=== PATIENT | female | born 1980 | race African-American/Black ===

== ENCOUNTER 2020-08-03 11:07 | Outpatient (REF) | payer MEDICAID, SELFPAY ==
[2020-08-03 12:04] LABS: COVID-19 Test Negative (Negative)
== END 2020-08-03 11:08 | disposition home or self-care (01) ==
LOC: HO.LAB 11:07
PROVIDERS: Visit Provider Internal Medicine
DX: Z20.822 Contact with and (suspected) exposure to COVID-19 (principal)
CPT/HCPCS: 36415; 87635; C9803

== ENCOUNTER 2020-10-31 20:58 | Emergency (ER) | payer MEDICAID, SELFPAY ==
[2020-10-31 21:16] VITALS: BP 150/84; PULSE 90; RESP 18; TEMP 37.1; O2SAT 99; BMI 43.5
--- NOTE | 2020-10-31 22:10 | ED.NECK ---
HPI - Neck Pain/Injury General Chief Complaint: Neck Pain/Injury Stated Complaint: neck pain Time Seen by Provider: 10/31/20 22:03 Source: patient Mode of arrival: ambulatory Limitations: no limitations History of Present Illness HPI Narrative: 40 yo female with no significant medical history presenting with acute onset of left sided neck pain that started when she was in the shower last night. She denies trauma or injury. Pain is located on the left side of her neck and worse with palpation and movement of her head. Her neck ROM has been limited due to the pain. No fever, chills, N/V, headache. No radiation of the pain. She has not taken any medications for the pain as of yet. MD complaint: neck pain Onset (ago): day(s) (1) Place: home Radiation: left lateral Severity: moderate Severity scale (1-10): 6 Quality: aching and spasming Duration: constant Relieving factors: heat therapy Exacerbating factors: movement of neck Context: unknown Associated symptoms: none Treatments prior to arrival: none Related Data Previous Rx's Medication Instructions Recorded cyclobenzaprine 10 mg PO TID PRN #10 tab 10/31/20 ibuprofen 800 mg PO Q8H PRN #14 tab 10/31/20 Allergies Allergy/AdvReac Type Severity Reaction Status Date / Time No Known Allergies Allergy Verified 10/31/20 21:15 Review of Systems Review of Systems: Constitutional: No Fever, No Chills ENT/Mouth: No sore throat, No Rhinorrhea, No Swallowing Difficulty Eyes: No Eye Pain, No Swelling, No Redness Cardiovascular: No Chest Pain, No SOB Respiratory: No Cough, No Sputum Gastrointestinal: No Nausea, No Vomiting Musculoskeletal: No joint pain, + Myalgias Skin: No Skin Lesions, No rash Neuro: No Weakness, No Numbness, No Dizziness, No Headache PMFSH Past Medical History Attestation statement: The following information was validated with the patient. Medical History Depression HTN (hypertension) Social History Social History Advance Directives: No Advance Directives Information Provided: Yes Patient : No Physical Exam Vital Signs: Vital Signs: Last Vital Signs Temp 98.7 F 10/31/20 21:16 Pulse 90 10/31/20 21:16 Resp 18 10/31/20 21:16 BP 150/84 H 10/31/20 21:16 Pulse Ox 99 10/31/20 21:16 Body Mass Index 43.5 Const: General: cooperative and healthy appearing Nutritional Appearance: average body habitus and well nourished Orientation/consciousness: patient oriented x3 HENMT: Head: Yes normal to inspection, Yes normocephalic and Yes atraumatic Ears: hearing grossly normal bilaterally General nose exam: Normal external nose present Face and sinus: Yes normal facial exam Mouth: Normal oral and palatal mucosa present Throat: Yes posterior oropharynx normal, Yes tonsils normal and Yes uvula midline Eyes: General: appearance normal, both eyes and all related structures Neck: Neck: Yes normal visual inspection, Yes no lymphadenopathy, Yes trachea midline, Yes tender and Yes torticollis (left side) Chest: Chest palpation & inspection: normal inspection of the chest Resp: Effort & Inspection: normal respiratory effort and able to speak in complete sentences Neuro: General: patient oriented x3 Extrem: General: Yes normal to inspection Psych: Appearance: grossly normal Mental Status: mental status grossly normal Course Course Course Narrative: 40 y/o female presenting with nontraumtic left sided neck pain for the last 24 hours. Exam is consistent with muscle spasm in the lateral aspect of the left neck. Neuro exam is intact without and nuchal rigidity or headaches. Will treat with muscle relaxer and NSAID and reassess. Reevaluation(s) Reevaluation #1: Significant improvement after meds. Stable for d/c home with muscle relaxer, NSAID, rest and heat. Encouraged to f/u with PCP. Discharge Plan Discharge Clinical Impression: Torticollis Patient Disposition: Home, Self-Care Instructions: Spasmodic Torticollis (ED) Additional Instructions: Rest. Use heat to your neck for 20 minutes at a time, several times throughout the day. Gently work on range of motion and moving your head side to side, as tolerated. Take the prescribed medications as needed. Follow up with your doctor for further management. Prescriptions: New cyclobenzaprine 10 mg tablet 10 mg PO TID PRN (Reason: muscle spasm) Qty: 10 RF: 0 ibuprofen 800 mg tablet 800 mg PO Q8H PRN (Reason: pain) Qty: 14 RF: 0 Discharge Date/Time: 10/31/20 23:04
[2020-10-31] MEDS: Ketorolac Tromethamine 30 MG/ML VIAL IM (22:30)
[2020-10-31] MEDS: diazePAM 5 MG TABLET PO (22:30)
== END 2020-10-31 23:04 | disposition home or self-care (01) ==
PROVIDERS: Emergency Provider Emergency Medicine
DX: M43.6 Torticollis (principal)
CPT/HCPCS: 96372; 99284; J1885

== ENCOUNTER 2021-02-23 10:19 | Outpatient (REF) | payer MEDICAID, SELFPAY | END 2021-02-23 10:20 | disposition home or self-care (01) | LOC: HO.LAB 10:19 | PROVIDERS: PCP Internal Medicine; Visit Provider Internal Medicine | DX: Z20.822 Contact with and (suspected) exposure to COVID-19 (principal) | CPT/HCPCS: C9803; U0003; U0005 ==

== ENCOUNTER 2022-12-20 10:10 | Outpatient (REF) | payer MEDICAID, SELFPAY ==
[2022-12-20 11:22] LABS: MANUAL DIFF FLAG NO
[2022-12-20 11:33] LABS: Basophils Percent Auto 0.3 % (0-2); Eosinophils Absolute Auto 0.2 X10*3/uL (0.0-0.4); Hematocrit 37.5 % (37.0-47.0); Imm Gran Abs Auto 0.03 X10*3/uL (0.00-0.03); Imm Gran Pct Auto 0.3 % (0.0-0.4); Lymphocytes Absolute Auto 2.1 X10*3/uL (1.2-4.9); Lymphocytes Percent Auto 23.3 % (20-40); Mean Corpuscular Hemoglobin 26.2 pg (27.0-33.0); Mean Corpuscular Volume 81.9 fL (80.0-98.0); Mean Platelet Volume 11.1 fL (9.4-12.3); Monocytes Absolute Auto 0.8 X10*3/uL (0.1-1.2); Monocytes Percent Auto 8.4 % (2-11); Neutrophils Absolute Auto 5.8 x10*3/uL (2.0-8.3); Neutrophils Percent Auto 65.7 % (45-73); Platelet Count 305 X10*3/uL (160-400); Red Blood Count 4.58 X10*6/uL (4.20-5.50); Red Cell Distribution Width 13.6 % (11.0-16.0); White Blood Count 8.9 X10*3/uL (4.8-10.8)
[2022-12-20 12:36] LABS: Estimated Average Glucose 111 mg/dL; Hemoglobin A1c % 5.5 % (<6.0)
[2022-12-20 12:51] LABS: Alanine Aminotransferase 17 U/L (0-31); Albumin Level 4.1 g/dL (3.5-5.0); Alkaline Phosphatase 58 U/L (39-117); Anion Gap 13 (12-20); Aspartate Amino Transferase 17 U/L (5-31); Bilirubin Direct 0.1 mg/dL (0.0-0.5); Bilirubin Total 0.6 mg/dL (0.0-1.0); Blood Urea Nitrogen 11 mg/dL (9-16); Calcium 9.3 mg/dL (8.4-10.2); Carbon Dioxide 22 mmol/L (22-29); Chloride 108 mmol/L (96-108); Cholesterol 208 mg/dL (<200); Estimated Glomerular Filt Rate > 60; Glucose Random 90 mg/dL (60-115); HDL Cholesterol 45 mg/dL (>40); LDL Cholesterol Calculated 142 mg/dL (<100); Sodium 139 mmol/L (135-145); Total Protein 7.2 g/dL (6.5-8.0); Triglycerides 107 mg/dL (<150)
[2022-12-20 12:54] LABS: TSH reflex Free T4 2.72 uIU/mL (0.32-4.0)
== END 2022-12-20 10:11 | disposition home or self-care (01) ==
LOC: HO.HHCL 10:10
PROVIDERS: Visit Provider Internal Medicine
DX: F32.A Depression, unspecified (principal)
CPT/HCPCS: 36415; 80048; 80061; 80076; 83036; 84443; 85025

== ENCOUNTER 2023-09-09 10:29 | Outpatient (REF) | payer MEDICAID, SELFPAY ==
[2023-09-09 11:37] LABS: MANUAL DIFF FLAG NO
[2023-09-09 11:44] LABS: Basophils Percent Auto 0.6 % (0-2); Eosinophils Absolute Auto 0.1 X10*3/uL (0.0-0.4); Eosinophils Percent Auto 1.2 % (0-4); Hematocrit 35.7 % (37.0-47.0); Hemoglobin 11.5 g/dl (12.0-16.0); Imm Gran Abs Auto 0.03 X10*3/uL (0.00-0.03); Imm Gran Pct Auto 0.4 % (0.0-0.4); Lymphocytes Absolute Auto 1.7 X10*3/uL (1.2-4.9); Mean Corpuscular HGB Conc 32.2 g/dl (31.0-35.0); Mean Corpuscular Hemoglobin 26.4 pg (27.0-33.0); Mean Corpuscular Volume 81.9 fL (80.0-98.0); Mean Platelet Volume 10.8 fL (9.4-12.3); Monocytes Absolute Auto 0.7 X10*3/uL (0.1-1.2); Neutrophils Absolute Auto 4.8 x10*3/uL (2.0-8.3); Neutrophils Percent Auto 65.8 % (45-73); Platelet Count 305 X10*3/uL (160-400); Red Blood Count 4.36 X10*6/uL (4.20-5.50); Red Cell Distribution Width 14.6 % (11.0-16.0); White Blood Count 7.3 X10*3/uL (4.8-10.8)
[2023-09-09 12:02] LABS: Estimated Average Glucose 117 mg/dL; Hemoglobin A1c % 5.7 % (<6.0)
[2023-09-09 12:17] LABS: Erythrocyte Sedimentation Rate 21 MM/HR (0-20)
[2023-09-09 12:50] LABS: Rheumatoid Factor < 13.0 IU/mL (<15.0)
[2023-09-09 13:20] LABS: Folate 10.2 ng/mL (> or = 4.0); Vitamin B12 643 pg/mL (200-900)
[2023-09-09 14:07] LABS: Anion Gap 14 (12-20); Blood Urea Nitrogen 11 mg/dL (9-16); C Reactive Protein 2.59 mg/dL (< or = 0.50); Calcium 9.5 mg/dL (8.4-10.2); Carbon Dioxide 23 mmol/L (22-29); Chloride 107 mmol/L (96-108); Estimated Glomerular Filt Rate > 60; Glucose Random 89 mg/dL (60-115); Sodium 140 mmol/L (135-145)
[2023-09-09 14:19] LABS: TSH reflex Free T4 2.58 uIU/mL (0.32-4.0); Vitamin D 25-OH Total 49.4 ng/mL (>30)
[2023-09-10 08:08] LABS: Follicle Stimulating Hormone 4.7 mIU/mL
[2023-09-13 21:29] LABS: Anti Nuclear Antibody Screen NEGATIVE (NEGATIVE)
== END 2023-09-09 10:30 | disposition home or self-care (01) ==
LOC: HO.HHCL 10:29
PROVIDERS: Visit Provider Internal Medicine
DX: R52 Pain, unspecified (principal); R00.2 Palpitations; N92.6 Irregular menstruation, unspecified
CPT/HCPCS: 36415; 80048; 82306; 82607; 82746; 83001; 83036; 84443; 85025; 85652; 86038; 86140; 86431

== ENCOUNTER 2023-09-19 12:54 | Outpatient (REF) | payer MEDICAID, SELFPAY ==
--- NOTE | ~2023-09-19 | US_ITS ---
EXAMINATION: US PELVIS CLINICAL INFORMATION: Metromenorrhagia, last menstrual period 09/06/2023. COMPARISON: None available. TECHNIQUE: Transabdominal ultrasound images of the pelvis were obtained. Limited visualization on transabdominal ultrasound images due to bowel gas. Transvaginal ultrasound images are recommended for better visualization and were offered to the patient, however, patient declined transvaginal ultrasound imaging. FINDINGS: The uterus measures 9.4 x 4.1 x 5.4 cm. Uterus is anteverted. No discrete fibroids are appreciated. Endometrium difficult to visualize limiting reliability of measurements, but imaged short segment demonstrates thickness of approximately 3 mm. Transabdominal ultrasound images of the pelvis were obtained. Limited visualization on transabdominal ultrasound images due to bowel gas. Transvaginal ultrasound images are recommended for better visualization and were offered to the patient; however, patient declined transvaginal ultrasound imaging. Left ovary measures 3.4 x 1.8 x 2.6 cm, volume 8.2 mL. 1.8 x 1.3 x 1.5 cm left ovarian cyst is difficult to characterize due to bowel gas, and possibly represents a follicle. Right ovary measures 3.5 x 2.0 x 1.7 cm, volume 6.2 mL and is grossly unremarkable. US/US pelvic and transvaginal IMPRESSION: 1. Endometrium poorly visualized, limiting reliability of measurements, but imaged short segment demonstrates thickness of approximately 3 mm. 2. Limited visualization on transabdominal ultrasound images due to bowel gas. Transvaginal ultrasound images are recommended for better visualization and were offered to the patient; however, patient declined transvaginal ultrasound imaging.
== END 2023-09-19 12:55 | disposition home or self-care (01) ==
LOC: HO.US 12:54
PROVIDERS: PCP Internal Medicine; Visit Provider Internal Medicine
DX: N92.6 Irregular menstruation, unspecified (principal)
CPT/HCPCS: 76830; 76856

== ENCOUNTER 2023-09-29 15:56 | Outpatient (REF) | payer MEDICAID, SELFPAY ==
[2023-09-29 17:00] LABS: Bacterial Vaginosis PCR NEGATIVE (Negative); Candida Group PCR NOT DETECTED (Not Detect); Candida glab krusei PCR NOT DETECTED (Not Detect); Trichomonas vaginalis PCR NOT DETECTED (Not Detect)
[2023-10-10 03:49] LABS: HPV mRNA E6/E7 rflx Not Detected (Not Detected)
== END 2023-09-29 15:57 | disposition home or self-care (01) ==
LOC: HO.HHCLNP 15:56
PROVIDERS: Visit Provider Advanced Practice Midwife
DX: Z12.4 Encounter for screening for malignant neoplasm of cervix (principal); Z11.51 Encounter for screening for human papillomavirus (HPV); N89.8 Other specified noninflammatory disorders of vagina
CPT/HCPCS: 0352U; 87624; 88142

== ENCOUNTER 2023-10-03 09:58 | Outpatient (REF) | payer MEDICAID, SELFPAY ==
--- NOTE | ~2023-10-03 | MM_ITS ---
EXAMINATION: MM SCREENING DIGITAL BREAST TOMOSYNTHESIS, BILATERAL CLINICAL INFORMATION: Screening. Asymptomatic. COMPARISON: Mammography: This is a baseline mammogram. TECHNIQUE: Digital breast tomosynthesis is performed in both the craniocaudal and mediolateral oblique views along with computer-aided detection (CAD). Synthesized 2D images are generated from the tomosynthesis. FINDINGS: The breasts are almost entirely fatty (ACR BI-RADS breast composition Category a). There are no significant masses, abnormal calcifications, or other abnormalities. MM/MM tomosynthesis screening BI IMPRESSION: No mammographic evidence of malignancy. ASSESSMENT: BI-RADS BI-RADS 1 - Negative RECOMMENDATION: Routine annual mammography screening. 1 year F/U This examination should not preclude the clinical evaluation of a suspicious palpable abnormality. This patient's information was entered into a reminder system with a target due date for their next mammogram.
== END 2023-10-03 09:59 | disposition home or self-care (01) ==
LOC: HO.MAMMO 09:58
PROVIDERS: PCP Internal Medicine; Visit Provider Advanced Practice Midwife
DX: Z12.31 Encounter for screening mammogram for malignant neoplasm of breast (principal)
CPT/HCPCS: 77063; 77067

== ENCOUNTER → 2023-10-03 10:00 | Outpatient (BNV) | payer MEDICAID, SELFPAY | PROVIDERS: PCP Internal Medicine; Visit Provider Radiology Diagnostic Radiology | DX: Z12.31 Encounter for screening mammogram for malignant neoplasm of breast (principal) | CPT/HCPCS: 77063; 77067 ==

== ENCOUNTER 2024-11-19 08:57 | Outpatient (REF) | payer MEDICAID, SELFPAY | END 2024-11-19 08:58 | disposition home or self-care (01) | LOC: HO.MAMMO 08:57 | PROVIDERS: Visit Provider Advanced Practice Midwife | DX: Z12.31 Encounter for screening mammogram for malignant neoplasm of breast (principal) | CPT/HCPCS: 77063; 77067 ==

== ENCOUNTER → 2024-11-19 09:15 | Outpatient (BNV) | payer MEDICAID, SELFPAY | PROVIDERS: Visit Provider Internal Medicine | DX: Z12.31 Encounter for screening mammogram for malignant neoplasm of breast (principal) | CPT/HCPCS: 77063; 77067 ==

== ENCOUNTER 2025-03-04 10:21 | Outpatient (REF) | payer MEDICAID, SELFPAY ==
--- OUTSIDE RECORDS SUMMARY | 2025-02-28 10:45 | XMS_ITS | Encounter Summary ---
Author Organization [employer] Address [address] [place] [address] Care Team Providers [facility] Name Role Phone Maranda Lezama MD Primary Care Provide r Reason for Referral * Consultation (Routine) - Closed Specialty Diagnoses / Procedures Referred By Contac t Referred To Contact Podiatry Diagnoses Great toe pain, right Maranda Lezama MD [address] [place] [address] Phone: tel: fax: Elroy Hahn DPM [address] [facility] [address] [place] [phone] Phone: tel: fax: Referral ID Status Reason Start Date Expiration Date V isits Requested Visits Authorized [id number] Closed Specialty Services Required 02/28/2025 02/28/2026 6 6 * Consultation (Routine) - Authorized Specialty Diagnoses / Procedures Referred By Contac t Referred To Contact Obstetrics and Gynecology Diagnoses Irregular periods/menstrual cycles Maranda Lezama MD [address] [place] [address] Phone: tel: fax: [facility] [address] 5[address] (Main Hospital Entrance) [place], [place] Phone: tel: fax: Referral ID Status Reason Start Date Expiration Date Visits Requested Visits Authorized [id number] Authorized Specialty Services Required 02/28/2025 02/28/2026 1 1 Scheduling Instructions Please refer to [facility] patient is requesting female provider Encounter Details Date Type Department Care Team (Late st Contact Info) Description 02/28/2025 10:45 AM EST Office Visit [facility] [address] [place] [phone] Maranda Lezama MD [address] [place], [place] [phone] Great toe pain, right (Primary Dx); Severe episode of recurrent major depressive disorder, without psychotic features (CMS/HCC) (HCC); Dietary counseling; Exercise counseling; Class 3 severe obesity due to excess calories with serious comorbidity and body mass index (BMI) of 40.0 to 44.9 in adult (HCC); Generalized anxiety disorder; Heartburn; Irregular periods/menstrual cycles; Iron deficiency anemia, unspecified iron deficiency anemia type Social History Tobacco Use Types Packs/Day Years Used Date Smoking Tobacco: Never Passive Smoke Exposure: Never Smokeless Tobacco: Never Alcohol Use Standard Drinks/Week Comments Not Currently 0 (1 standard drink = 0.6 oz pur e alcohol) Depression Answer Date Recorded Patient Health Questionnaire-9 Score 16 02/28/2025 Patient Health Questionnaire-9 Score 16 02/28/2025 Last PHQ-9: Questionnaire Data Not on file 1 04/30/2024 Housing Stability Answer Date Recorded What is your housing situation today? I have rubysofie cunha 02/28/[address] you li ve. Do you have problems with any of the following? Pests such as bugs, ants, or mice 02/28/2025 Food Insecurity Answer Date Recorded Within the past 12 months, y ou worried that your food would run out before you got money to buy more: Never True 02/28/2025 Within the past 12 months,th e food you bought just didn't last and you didn't have enough money to get more: Never True 06/2024 Transportation Answer Date Recorded In the past 12 months, has l ack of transportation kept you from medical appts, meetings, work or from getting things needed for daily living? Yes, it has kept me from non-medical meetings, work, or getting things that I need 02/28/2025 Utilities Answer Date Recorded In the past 12 months, has t he electric, gas, oil or water company threatened to shut off services in your home? No 02/28/2025 Depression Answer Date Recorded Patient Health Questionnaire-2 Score 4 02/28/2025 Internet Access Answer Date Recorded Internet Access Q1 Yes 02/28/2025 Internet Access Q2 Not on file 02/28/2025 Comments No Sex and Gender Information Value Date Recorded Sex Assigned at Female 02/25/2022 10:35 AM EDT Legal Sex Female 10:35 AM EDT Gender Identity Female 02/25/2022 10:35 AM EDT Sexual Orientation Choose not to disclose 2021 10:35 AM EDT documented as of this encounter Last Filed Vital Signs Vital Sign Reading Time Taken Comments Blood Pressure 124/82 02/28/2025 10:47 AM EST Pulse 87 02/28/2025 10:47 AM EST Temperature 33.9 C (93.1 F) 02/28/2025 10:47 AM EST Respiratory Rate 18 02/28/2025 10:47 AM EST Oxygen Saturation 97% 02/28/2025 10:47 AM EST Inhaled Oxygen Concentration - - Weight 130 kg (286 lb 12.8 oz) 02/28/2025 10:47 AM EST Height 170.2 cm (5' 7 ) 02/28/2025 10:47 AM EST Body Mass Index 44.92 02/28/2025 10:47 AM EST documented in this encounter Functional Status * Over the past 2 weeks, how often have you been bothered by any of the following problems? Question Answer Date of Assessment Author Patient Health Questionnaire-2 Score 4 06/2024 11:35 AM EST Silvia Plummer MA * Little interest or pleasure in doing things Answer Date of Assessment Author More than half the days 02/28/2025 11:35 AM Silvia Lorenzana MA * Feeling down, depressed, or hopeless Answer Date of Assessment Author More than half the days 02/28/2025 11:35 AM Silvia Lorenzana MA * Trouble falling or staying asleep, or sleeping too much Answer Date of Assessment Author Nearly every day 02/28/2025 11:35 AM Silvia Lorenzana MA * Feeling tired or having little energy Answer Date of Assessment Author More than half the days 02/28/2025 11:35 AM Silvia Lorenzana MA * Poor appetite or overeating Answer Date of Assessment Author More than half the days 02/28/2025 11:35 AM Silvia Lorenzana MA * Feeling bad about yourself - or that you are a failure or have let yourself or your family down Answer Date of Assessment Author Nearly every day 02/28/2025 11:35 AM Silvia Lorenzana MA * Trouble concentrating on things, such as reading the newspaper or watching television Answer Date of Assessment Author More than half the days 02/28/2025 11:35 AM Silvia Lorenzana MA * Moving or speaking so slowly that other people could have noticed? Or the opposite - being so fidgety or restless that you have been moving around a lot more than usual. Answer Date of Assessment Author Not at all 02/28/2025 11:35 AM Meredith Lorenzana MA * Thoughts that you would be better off or hurting yourself in some way Answer Date of Assessment Author Not at all 02/28/2025 11:35 AM Meredith Lorenzana MA * Patient Health Questionnaire-9 Score Answer Date of Assessment Author 16 02/28/2025 11:35 AM Meredith Lorenzana MA * Over the last 2 weeks, how often have you been bothered by any of the following problems? Question Answer Date of Assessment Author Feeling nervous, anxious, or on edge 2 06/2024 11:36 AM Silvia Lorenzana MA Not being able to stop or co ntrol worrying 2 02/28/2025 11:36 AM Silvia Lorenzana MA Worrying too much about diff erent things 2 02/28/2025 11:36 AM Silvia Lorenzana MA Trouble relaxing 2 02/28/2025 11:36 AM Silvia Lorenzana MA Being so restless that it is hard to sit still 1 02/28/2025 11:36 AM Silvia Lorenzana MA Becoming easily annoyed or irritable 06/2024 11:36 AM Silvia Lorenzana MA Feeling afraid as if somethi ng awful might happen 1 02/28/2025 11:36 AM Silvia Lorenzana MA GUERA-7 Total Score 11 02/28/2025 11:36 AM Silvia Lorenzana MA documented as of this encounter Progress Notes * Maranda Jiang MD - 02/28/2025 10:45 AM EST SUBJECTIVE: Edith Mccarty is a 44 y.o. year old female who presents for acute visit . Edith Mccarty, age 44 years Depression and Anxiety - Longstanding history of anxiety and depression - Ongoing symptoms despite current medication; previous dose increase led to emotional blunting andwas reduced back - Mother in March 2024, worsening depressive symptoms and emotional distress - Reports feeling devastated, emotionally absent, and struggling to cope, especially when alone at home - Emotional eating and poor dietary habits since mother's - Occasional alcohol use, approximately once a month, for relief - Denies suicidal ideation or intent to self-harm - Continues weekly therapy sessions - Difficulty with social situations, especially in crowded places; experiences irritation and discomfort during outings with children - Reports increased irritability and emotional sensitivity in public settings Sleep Disturbance - Difficulty falling asleep and staying asleep - Occasional use of hydroxyzine in the past for sleep, but found it excessively sedating Appetite Changes - Persistent sensation of hunger, never feels full despite regular meals - Reports increased appetite and frequent emotional eating Gastrointestinal Symptoms - History of extreme heartburn, improved with famotidine taken once daily - Constipation occurred when fluoxetine was taken twice daily; resolved with once daily dosing - History of hemorrhoids Menstrual Irregularities -Will like to be referred to outside PURCHASING OFFICER (female provider) Big Toe Sensation - Reports abnormal pressure sensation in big toe for several weeks - Sensation described as feeling like something is in the shoe, persistent regardless of footwear - No visible abnormality on inspection Fatigue - Reports ongoing fatigue, possibly related to anemia and menstrual irregularities Social History Social History Narrative Not on file Problem List[1] Irritant contact dermatitis Encounter by telehealth for suspected COVID-19 Atopic dermatitis Primary hypertension Generalized anxiety disorder Severe episode of recurrent major depressive disorder, without psychotic features (CMS/HCC) (HCC) Heartburn Body aches Palpitations Irregular periods/menstrual cycles Iron deficiency anemia Family History[2] Review of Systems Constitutional: Positive for activity change, appetite change and fatigue. HENT: Negative. Respiratory: Negative. Cardiovascular: Negative. Gastrointestinal: Positive for abdominal distention and abdominal pain. Heartburn Psychiatric/Behavioral: Positive for behavioral problems, confusion, decreased concentration and sleep disturbance. Negative for self-injury and suicidal ideas. The patient is nervous/anxious. OBJECTIVE: Vitals: 02/28/25 1047 BP: 124/82 BP Location: Left arm Patient Position: Sitting BP Cuff Size: Adult Pulse: 87 Resp: 18 Temp: 93.1 ??F (33.9 ??C) TempSrc: Temporal SpO2: 97% Weight: 286 lb 12.8 oz (130 kg) Height: 5' 7 (1.702 m) Physical Exam Constitutional: Appearance: Normal appearance. Cardiovascular: Rate and Rhythm: Normal rate and regular rhythm. Pulmonary: Effort: Pulmonary effort is normal. Breath sounds: Normal breath sounds. Musculoskeletal: Right lower leg: No edema. Left lower leg: No edema. Feet: Right foot: Skin integrity: Skin integrity normal. Toenail Condition: Right toenails are normal. Left foot: Skin integrity: Skin integrity normal. Toenail Condition: Left toenails are normal. Neurological: Mental Status: She is alert. Follow Up: No follow-ups on file. Medications Ordered Prior to Encounter[3] Problem List Items Addressed This Visit Severe episode of recurrent major depressive disorder, without psychotic features (CMS/HCC) (HCC) Relevant Medications citalopram (CeleXA) 20 MG tablet Other Relevant Orders Comprehensive Metabolic Panel Hemoglobin A1c HIV-1/2 Antigen and Antibodies, Fourth Generation, with Reflexes Hepatitis C Antibody with Reflex to HCV, RNA, Quantitative, Real-Time PCR Lipid Panel, Standard Vitamin D, 25-Hydroxy, Total, Immunoassay TSH with Reflex to Free T4 Generalized anxiety disorder Relevant Medications citalopram (CeleXA) 20 MG tablet hydrOXYzine HCl (Atarax) 25 MG tablet Heartburn Relevant Medications famotidine (Pepcid) 20 MG tablet Irregular periods/menstrual cycles Relevant Orders Referral to Obstetrics / Gynecology Iron deficiency anemia Relevant Orders CBC auto differential Iron And Total Iron Binding Capacity Ferritin Vitamin B12 (Cobalamin) and Folate Panel, Serum Other Visit Diagnoses Dietary counseling Exercise counseling Class 3 severe obesity due to excess calories with serious comorbidity and body mass index (BMI) of40.0 to 44.9 in adult (HCC) Severe episode of recurrent major depressive disorder, without psychotic features: - Major depressive disorder with recurrent severe episodes, exacerbated by bereavement and inadequate response to current pharmacotherapy. No suicidal ideation. Multifactorial etiology considered, including medication side effects and sleep disturbance. - Discontinued fluoxetine. Prescribed citalopram 20 mg daily. Provided hydroxyzine for sleep disturbances as needed. Continue weekly psychotherapy. Scheduled follow-up phone call in four weeks to assess response to medication and adjust dosage if necessary. Considered referral to psychiatrist for formal management. - Risks and side effects: Discussed emotional blunting with higher antidepressant doses. Informed about gradual transition between medications. Generalized anxiety disorder: - Generalized anxiety disorder with social anxiety symptoms, contributing to emotional distress andsleep difficulties. - Prescribed hydroxyzine for acute anxiety and insomnia as needed. Continue psychotherapy. Monitor anxiety symptoms during follow-up. - Risks and side effects: Discussed sedation as a side effect of hydroxyzine. Class 3 severe obesity due to excess calories with serious comorbidity and body mass index (BMI) of40.0 to 44.9 in adult: - Severe obesity with emotional eating and increased appetite, likely multifactorial and related tomood disorder. - Provided dietary counseling. Provided exercise counseling. Heartburn: - Heartburn, possibly exacerbated by fluoxetine. Responding to famotidine. - Continued famotidine once daily in the morning. Advised avoidance of foods that aggravate symptoms. Prescribed 30 tablets monthly. Irregular periods/menstrual cycles: - Irregular menstrual cycles with associated body aches and palpitations. Possible gynecologic etiology. - Referral to female texture artist at [facility] for further evaluation. Iron deficiency anemia, unspecified iron deficiency anemia type: - Iron deficiency anemia, likely secondary to menstrual irregularities. - Ordered repeat laboratory tests to assess current anemia status and iron levels. Will discuss iron supplementation if indicated based on results. Great toe pain, right: - Right great toe pain of unclear etiology. - Referral to marketing strategist for further evaluation. This note was drafted using Ambient (AI) technology. The patient/patient's guardian has been informed and has consented to the use of this technology: Yes [1] Patient Active Problem List Diagnosis Irritant contact dermatitis Encounter by telehealth for suspected COVID-19 Atopic dermatitis Primary hypertension Generalized anxiety disorder Severe episode of recurrent major depressive disorder, without psychotic features (CMS/HCC) (HCC) Heartburn Body aches Palpitations Irregular periods/menstrual cycles Iron deficiency anemia [2] Family History Problem Relation Name Age of Onset Hypertension Mother Depression Mother Bipolar disorder Mother Diabetes Mother [3] Current Outpatient Medications on File Prior to Visit Medication Sig Dispense Refill amLODIPine (Norvasc) 5 MG tablet TAKE 1 TABLET BY MOUTH EVERY MORNING 90 tablet 0 D3 Super Strength 50 MCG (1999 UT) capsule TAKE 1 CAPSULE BY MOUTH EVERY DAY 90 capsule 1 labetalol (Normodyne) 100 MG tablet TAKE 1 TABLET BY MOUTH THREE TIMES DAILY 270 tablet 1 [DISCONTINUED] famotidine (Pepcid) 20 MG tablet TAKE 1 TABLET BY MOUTH TWICE DAILY 180 tablet 0 [DISCONTINUED] FLUoxetine (PROzac) 20 MG capsule TAKE 1 CAPSULE BY MOUTH ONCE DAILY 30 capsule 11 [DISCONTINUED] hydrOXYzine HCl (Atarax) 25 MG tablet Take 1 tablet (25 mg) by mouth every 6 (six) hours if needed for anxiety for up to 10 days. 30 tablet 1 No current facility-administered medications on file prior to visit. documented in this encounter Plan of Treatment Upcoming Encounters Date Type Department Care Team (Late st Contact Info) Description 04/08/2025 9:30 AM EST Telemedicine [facility] MEDICINE [address] [place] [phone] Maranda Lezama MD [address] [place] [phone] Scheduled Orders Name Type Priority Associated Diagnoses Orde r Schedule Comprehensive Metabolic Panel Lab Routine Severe episode of recurrent major depressive disorder, without psychotic features (CMS/HCC) (HCC) Expected: 02/28/2025 (Approximate), Expires: 02/28/2026 HIV-1/2 Antigen and Antibodies, Fourth Generation, with Reflexes Lab Routine Severe episode of recurrent major depressive disorder, without psychotic features (CMS/HCC) (HCC) Expected: 02/28/2025 (Approximate), Expires: 02/28/2026 Hepatitis C Antibody with Reflex to HCV, RNA, Quantitative, Real-Time PCR Lab Routine Severe episode of recurrent major depressive disorder, without psychotic features (CMS/HCC) (HCC) Expected: 02/28/2025, Expires: 02/28/2026 Lipid Panel, Standard Lab Routine Severe episode of recurrent major depressive disorder, without psychotic features (CMS/HCC) (HCC) Expected: 02/28/2025 (Approximate), Expires: 02/28/2026 Vitamin D, 25-Hydroxy, Total, Immunoassay Lab Routine Severe episode of recurrent major depressive disorder, without psychotic features (CMS/HCC) (HCC) Expected: 02/28/2025 (Approximate), Expires: 02/28/2026 TSH with Reflex to Free T4 Lab Routine Severe episode of recurrent major depressive disorder, without psychotic features (CMS/HCC) (HCC) Expected: 02/28/2025 (Approximate), Expires: 02/28/2026 Iron And Total Iron Binding Capacity Lab Routine Iron deficiency anemia, unspecified iron deficiency anemia type Expected: 02/28/2025, Expires: 02/28/2026 Ferritin Lab Routine Iron deficiency anemia, unspecified iron deficiency anemia type Expected: 02/28/2025, Expires: 02/28/2026 Vitamin B12 (Cobalamin) and Folate Panel, Serum Lab Routine Iron deficiency anemia, unspecified iron deficiency anemia type Expected: 02/28/2025, Expires: 02/28/2026 Scheduled Referrals Name Type Priority Associated Diagnoses Order Schedule Referral to Obstetrics / Gynecology Outpatient Referral Routine Irregular periods/menstrual cycles Expected: 02/28/2025 (Approximate), Expires: 02/28/2026 Referral to Podiatry Outpatient Referral Routine Great toe pain, right Expected: 02/28/2025 (Approximate), Expires: 02/28/2026 documented as of this encounter Procedures Procedure Name Priority Date/Time Associated Diagnosis Comments CBC WITH AUTO DIFFERENTIAL Routine 03/04/2025 10:26 AM EST Iron deficiency anemia, unspecified iron deficiency anemia type HEMOGLOBIN A1C Routine 03/04/2025 10:26 AM EST Severe episode of recurrent major depressive disorder, without psychotic features (CMS/HCC) ([facility]) documented in this encounter Results * (ABNORMAL) CBC auto differential (03/04/2025 10:26 AM EST) White Blood Count 6.7 4.8 - 10.8 X10*3/uL [facility] Red Blood Count 4.42 4.20 - 5.50 X10*6/uL [facility] Hemoglobin 11.0(L) 12.0 - 16.0 g/dl [facility] Hematocrit 35.6(L) 37.0 - 47.0 % [facility] Mean Corpuscular Volume 80.5 80.0 - 98.0 fL [facility] Mean Corpuscular Hemoglobin 24.9(L) 27.0 - 33.0 pg [facility] Mean Corpuscular HGB Conc 30.9(L) 31.0 - 35.0 g/dl [facility] Red Cell Distribution Width 14.4 11.0 - 16.0 % [facility] Platelet Count 307 160 - 400 X10*3/uL [facility] Mean Platelet Volume 11.0 9.4 - 12.3 [facility] Neutrophils Percent Auto 64.1 45 - 73 % [facility] Imm Gran Pct Auto 0.1 0.0 - 0.4 % [facility] Lymphocytes Percent Auto 25.9 20 - 40 % [facility] Monocytes Percent Auto 8.1 2 - 11 % [facility] Eosinophils Percent Auto 1.5 0 - 4 % [facility] Basophils Percent Auto 0.3 0 - 2 % [facility] NRBC Pct Auto 0.0 0.0 - 0.2 /100WBC [facility] Neutrophils Absolute Auto 4.3 2.0 - 8.3 x10*3/uL [facility] Imm Gran Abs Auto 0.01 0.00 - 0.03 X10*3/uL [facility] Lymphocytes Absolute Auto 1.7 1.2 - 4.9 X10*3/uL [facility] Monocytes Absolute Auto 0.5 0.1 - 1.2 X10*3/uL [facility] Eosinophils Absolute Auto 0.1 0.0 - 0.4 X10*3/uL [facility] Basophils Absolute Auto 0.0 0.0 - 0.2 X10*3/uL [facility] NRBC Abs Auto 0.000 0.0 - 0.012 X10*3/uL [facility] Blood Venous blood specimen / Unknown 03/04/2025 10:26 AM EST 03/04/2025 11:17 AM EST Maranda Jiang MD LAB BLOOD ORDERABLES Final Result Performing Organization Address City/[facility]/ZIP Co de Phone Number [facility] [address] [place] [phone] * Hemoglobin A1c (03/04/2025 10:26 AM EST) Hemoglobin A1c 5.8 <6.0 % [facility] Comment:Hemoglobin A1C Refer ence Range Adults: 4.8 - 6.0 % Non diabetic: < 6.0 % Goal: < 7.0 %Additional Action Suggested: > 8.0 %Note: Hemoglobin A1c results are invalid for patients with abnormal amounts of HbF. Blood transfusions may impact the HbA1c concentration in the patient sample. Estimated Average Glucose 120 mg/dL [facility] Comment:eAG = Estimated ave rage glucose which is %A1C expressed asaverage glucose, using the formula of the G5F-KmtcxpaEcotikt Glucose study (ADAG), Diabetes Care, Vol.31,#8,Nov. 2007 Blood Venous blood specimen / Unknown 03/04/2025 10:26 AM EST 03/04/2025 11:17 AM EST us Maranda iJang MD LAB BLOOD ORDERABLES Final Result Performing Organization Address City/[facility]/ZIP Co de Phone Number [facility] [address] [place] [phone] documented in this encounter Visit Diagnoses Diagnosis Great toe pain, right- Primary Severe episode of recurrent major depressive disorder, without psychotic features (CMS/HCC) (HCC) Dietary counseling Dietary surveillance and counseling Exercise counseling Class 3 severe obesity due to excess calories with serious comorbidity and body mass index (BMI) of 40.0 to 44.9 in adult (HCC) Generalized anxiety disorder Heartburn Irregular periods/menstrual cycles Iron deficiency anemia, unspecified iron deficiency anemia type documented in this encounter Additional Health Concerns Assessment Noted Time PHQ-9 Depression Total Score: 16 025 11:35 AM EST documented as of this encounter Care Teams [facility] Relationship Specialty Start Date End Date Maranda Lezama MD [address] [place] [phone] PCP - General Family Medicine 11/30/18 documented as of this encounter
[2025-03-04 11:23] LABS: MANUAL DIFF FLAG NO
[2025-03-04 11:40] LABS: Hematocrit 35.6 % (37.0-47.0); Hemoglobin 11.0 g/dl (12.0-16.0); Imm Gran Abs Auto 0.01 X10*3/uL (0.00-0.03); Imm Gran Pct Auto 0.1 % (0.0-0.4); Lymphocytes Absolute Auto 1.7 X10*3/uL (1.2-4.9); Mean Corpuscular HGB Conc 30.9 g/dl (31.0-35.0); Mean Corpuscular Hemoglobin 24.9 pg (27.0-33.0); Mean Corpuscular Volume 80.5 fL (80.0-98.0); NRBC Abs Auto 0.000 X10*3/uL (0.0-0.012); NRBC Pct Auto 0.0 /100WBC (0.0-0.2); Platelet Count 307 X10*3/uL (160-400); Red Blood Count 4.42 X10*6/uL (4.20-5.50); White Blood Count 6.7 X10*3/uL (4.8-10.8)
--- OUTSIDE RECORDS SUMMARY | 2025-03-04 12:12 | XMS_ITS | Encounter Summary ---
Author Organization [employer] Address [address] [place] [address] Care Team Providers Care Coding Specialist Name Role Phone Maranda Lezama MD Primary Care Provide r Reason for Visit * Reason Onset Date Comments Referral 07/24/2022 Encounter Details Date Type Department Care Team ([facility] st Contact Info) Description 07/24/2022 Telephone [facility] MEDICINE [address] [place] [address] Maranda Lezama MD [address] [place] [address] Referral Social History Tobacco Use Types Packs/Day Years Used Date Smoking Tobacco: Never Assessed Comments Unknown Sex and Gender Information Value Date Recorded Sex Assigned at Female 02/25/2022 10:35 AM EDT Legal Sex Female 10:35 AM EDT Gender Identity Female 02/25/2022 10:35 AM EDT Sexual Orientation Choose not to disclose 2021 10:35 AM EDT documented as of this encounter Miscellaneous Notes * Telephone Encounter - Chepe Benavidez - 07/24/2022 9:32 AM EDT Tc from pt requesting [facility]. Please contact pt at [phone] documented in this encounter Plan of Treatment Upcoming Encounters Date Type Department Care Team (Late st Contact Info) Description 04/08/2025 9:30 AM EST Telemedicine [facility] MEDICINE [address] [place] [address] Maranda Lezama MD [address] [place] [address] documented as of this encounter Visit Diagnoses Not on filedocumented in this encounter Care Teams Coding Specialist Relationship Specialty Start Date End Date Maranda Lezama MD [address] [place] [id number] PCP - General Family Medicine 11/30/18 documented as of this encounter
--- OUTSIDE RECORDS SUMMARY | 2025-03-04 12:12 | XMS_ITS | Encounter Summary ---
Author Organization [employer] Address [address] [place] [address] Care Team Providers Care Net Mobile Developer Name Role Phone Maranda Lezama MD Primary Care Provide r Encounter Details Date Type Department Care Team (Latest Contact Info) Description 02/28/2025 Travel Social History Tobacco Use Types Packs/Day Years [...] AM EDT documented as of this encounter Functional Status * Over the past 2 weeks, how often have you been bothered by any of the following problems? Question Answer Date of Assessment Author Patient Health Questionnaire-2 Score 4 06/2024 11:35 AM Silvia Lorenzana MA * Little interest or pleasure in [...] Lorenzana MA Becoming easily annoyed or irritable 1 06/2024 11:36 AM Silvia Lorenzana MA Feeling afraid as if somethi ng awful might happen 1 02/28/2025 11:36 AM Silvia Lorenzana MA GUERA-7 Total Score 11 02/28/2025 11:36 AM Silvia Lorenzana MA documented as of this encounter Plan of Treatment Upcoming Encounters Date Type Department Care Team (Late st Contact Info) Description 04/08/2025 9:30 AM EST Telemedicine [facility] MEDICINE [address] [place] [address] Maranda Lezama MD [address] [place] [address] documented as of this encounter Visit Diagnoses Not on filedocumented in this encounter Additional Health Concerns Assessment Noted Time PHQ-9 Depression Total Score: 16 025 11:35 AM EST documented as of this encounter Care Teams Net Mobile Developer Relationship Specialty Start Date End Date Maranda Lezama MD [address] [place] [address] PCP - General Family Medicine 11/30/18 documented as of this encounter
--- OUTSIDE RECORDS SUMMARY | 2025-03-04 12:12 | XMS_ITS | Encounter Summary ---
Author Organization [employer] Address [address] [place] [address] Care Team Providers Care Vascular Manager Name Role Phone Maranda Lezama MD Primary Care Provide r Reason for Visit * Reason Onset Date Comments Medication Question 02/21/2025 Encounter Details Date Type Department Care Team ([facility] st Contact Info) Description 02/21/2025 Telephone [facility] MEDICINE [address] [place] [address] Maranda Lezama MD [address] [place] [address] Medication Question Social History Tobacco Use Types Packs/Day Years Used Date Smoking Tobacco: Never Passive Smoke Exposure: Never Smokeless Tobacco: Never Alcohol Use Standard Drinks/Week Comments Not Currently 0 (1 standard drink = 0.6 oz pur e alcohol) Depression Answer Date Recorded Patient Health Questionnaire-9 Score 21 12/20/2022 Housing Stability Answer Date Recorded What is your housing situation today? I have rubysofie cunha 02/27/[address] you li ve. Do you have problems with any of the following? None of the above 02/27/2023 Food Insecurity Answer Date Recorded Within the past 12 months, y ou worried that your food would run out before you got money to buy more: Never True 02/27/2023 Within the past 12 months,th e food you bought just didn't last and you didn't have enough money to get more: Never True 05/2022 Transportation Answer Date Recorded In the past 12 months, has l ack of transportation kept you from medical appts, meetings, work or from getting things needed for daily living? No 02/27/2023 Utilities Answer Date Recorded In the past 12 months, has t he electric, gas, oil or water company threatened to shut off services in your home? No 02/27/2023 Depression Answer Date Recorded Patient Health Questionnaire-2 Score 6 12/20/2022 Comments No Sex and Gender Information Value Date Recorded Sex Assigned at Female 02/25/2022 10:35 AM EDT Legal Sex Female 10:35 AM EDT Gender Identity Female 02/25/2022 10:35 AM EDT Sexual Orientation Choose not to disclose 2021 10:35 AM EDT documented as of this encounter Miscellaneous Notes * Telephone Encounter - Jacob Goldstein - 02/21/2025 12:01 PM EDT Tc from pt requesting a call back regarding the medication FLUoxetine (PROzac) 20 MG capsule Pt states that the medication is no longer affecting her body and is requesting an alternative. Contact pt at [phone] documented in this encounter Plan of Treatment Upcoming Encounters Date Type Department Care Team (Late st Contact Info) Description 04/08/2025 9:30 AM EST Telemedicine [facility] MEDICINE [address] [place] [address] Maranda Lezama MD [address] [place] [address] documented as of this encounter Visit Diagnoses Not on filedocumented in this encounter Additional Health Concerns Assessment Noted Time PHQ-9 Depression Total Score: 21 023 8:31 AM EDT documented as of this encounter Care Teams Vascular Manager Relationship Specialty Start Date End Date Maranda Lezama MD [address] [place] [id number] PCP - General Family Medicine 11/30/18 documented as of this encounter
--- OUTSIDE RECORDS SUMMARY | 2025-03-04 12:13 | XMS_ITS | Clinical Summary ---
Author Organization [employer] Address [address] [facility] [address] [place] [address] Care Team Providers Care Process Steward Name Role Phone Maranda Lezama MD Primary Care Provide r Allergies No known active allergies Medications * This document contains information received from the source organization and may not represent a complete record from that organization. D3 Super Strength 50 MCG (1999) capsuleIndicatio ns:Vitamin D deficiency TAKE 1 CAPSULE BY MOUTH EVERY DAY 90 capsule 1 10/12/19 25 Active amLODIPine (Norvasc) 5 MG tabletIndication s:Primary hypertension TAKE 1 TABLET BY MOUTH EVERY MORNING 90 tablet 12/01/19 25 Active labetalol (Normodyne) 100 MG tabletIndication s:Vitamin D deficiency TAKE 1 TABLET BY MOUTH THREE TIMES DAILY 270 tablet 1 12/17/19 25 Active citalopram (CeleXA) 20 MG tabletIndication s:Severe episode of recurrent major depressive disorder, without psychotic features (CMS/HCC) (HCC) Take 1 tablet (20 mg) by mouth Once per day. 30 tablet 2 02/29/20 25 025 Active hydrOXYzine HCl (Atarax) 25 MG tabletIndication s:Generalized anxiety disorder Take 1 tablet (25 mg) by mouth if needed at bedtime for anxiety. 15 tablet 1 02/29/20 25 025 Active famotidine (Pepcid) 20 MG tabletIndication s:Heartburn Take 1 tablet (20 mg) by mouth Once per day. 90 tablet 02/29/20 25 Active hydrOXYzine HCl (Atarax) 25 MG tabletIndication s:Generalized anxiety disorder Take 1 tablet (25 mg) by mouth every 6 (six) hours if needed for anxiety for up to 10 days. 30 tablet 1 12/18/19 23 025 Discontinued(Re order (will not trigger notification to Pharmacy)) FLUoxetine (PROzac) 20 MG capsuleIndicatio ns:Generalized anxiety disorder TAKE 1 CAPSULE BY MOUTH ONCE DAILY 30 capsule 11 09/04/19 25 025 Discontinued famotidine (Pepcid) 20 MG tabletIndication s:Heartburn TAKE 1 TABLET BY MOUTH TWICE DAILY 180 tablet 10/23/19 025 Discontinued(Re order (will not trigger notification to Pharmacy)) Active Problems Problem Noted Date Diagnosed Date Iron deficiency anemia 02/28/2025 Great toe pain, right 02/28/2025 Heartburn 09/09/2023 Assessment & Plan (10/13/2023 9:54 AM EDT): I advise patient to avoid NSAIDs, spicy and acid food, I advise to eat at the same time every day, I advise to elevate the head of the bed and take medications as prescribe C/w famotidine H pylori test pending Assessment & Plan (09/09/2023 10:09 AM EDT): I advise patient to avoid NSAIDs, spicy and acid food, I advise to eat at the same time every day, I advise to elevate the head of the bed and take medications as prescribe Famotidine 20mg BID H pylori test Body aches 09/09/2023 Palpitations 09/09/2023 Irregular periods/menstrual cycles 09/09/2023 Assessment & Plan (10/13/2023 9:55 AM EDT): I reviewed with patient US results, I let her know view was limited, she will follow up with Cecil regarding management Irritant contact dermatitis 12/17/2022 Encounter by telehealth for suspected COVID-19 0 12/17/2022 Atopic dermatitis 12/17/2022 Primary hypertension 12/17/2022 Assessment & Plan (01/23/2023 11:12 AM EDT): - Aerobic exercise to reduce BP. Initial goal of 30 min walk 3-5x/week. Increase as tolerated. - low-sodium diet (goal: <2g/day) and heart healthy diet such as DASH to reduce BP and prevent ASCVD. - Home BP monitoring 1-2 x day with goal of <140/90. - Seek immediate medical attention for chest pain, palpitations, SOB, syncope, or sudden changes in mental status. - Do not change or discontinue current prescriptions without first consulting health care provider Assessment & Plan (12/17/2022 10:34 AM EDT): Maintenance: BMP: ordered today Lipid Panel: ordered today ASCVD Risk: Calculate pending updated labs - Aerobic exercise to reduce BP. Initial goal of 30 min walk 3-5x/week. Increase as tolerated. - low-sodium diet (goal: <2g/day) and heart healthy diet such as DASH to reduce BP and prevent ASCVD. - Home BP monitoring 1-2 x day with goal of <140/90. - Seek immediate medical attention for chest pain, palpitations, SOB, syncope, or sudden changes in mental status. -I added today to her medications amlodipine 5mg daily, I advise to log BP for next visit with nurse my plan is if BP not at goal to go up on amlodipine to 10mg - Do not change or discontinue current prescriptions without first consulting health care provider Generalized anxiety disorder 12/17/2022 Assessment & Plan (10/13/2023 9:59 AM EDT): Patient has being being feeling better, reports hydroxyzine works but makes her feel to sleepy, she will only take it if its really necessary Assessment & Plan (09/09/2023 10:10 AM EDT): Counseling done Hydorxyzine PRN Fluoxetine dose reduce to 20mg due to possible side effects RTC 4 weeks if symptoms are not well control I will possibly change her medication to duloxetine Assessment & Plan (01/23/2023 11:12 AM EDT): Counseling done C/w fluoxetine 40mg and hydroxyzine PRN Assessment & Plan (12/20/2022 9:01 AM EDT): ssessment: Patient with daily symptoms of anhedonia, depressed mood, insomnia, low motivation, guilt, trouble concentrating, and overeating. She also experiences anxiousness, feeling overwhelmed, constant excessive worry, trouble relaxing, panic attacks (palpitations, sweating, headache, and trembling), irrational fear and irritability. Presentation in the context of ill parents, inability to provide financially, and raising a child with multiple neurological conditions. Patient will benefit from an OP therapy referral. Patient's PCP is currently prescribing medication. At this time Edith Mccarty meets criteria for Visit Diagnoses: Problem List Items Addressed This Visit Other Generalized anxiety disorder Severe episode of recurrent major depressive disorder, without psychotic features (CMS/HCC) Patient ready to address current needs Yes Strengths include support from her . PLAN: 1. Follow up with [facility]: Recommended for follow-up: As needed 2. Patient goal is to address mental health in order to be able to function appropriately. 3. Behavioral Recommendations a. Patient will comply with medication b. Patient will utilize coping skills provided c. Patient will engage in therapy once established d. Patient may reach out to [facility], if needed Assessment & Plan (12/17/2022 10:35 AM EDT): Counseling done [facility] team was call in today I went up on her fluoxetine to 40mg and I started her on hydroxyzine PRN RTC 4 weeks televisit Severe episode of recurrent major depressive disorder, without psychotic features (CMS/HCC) 12/17/2022 Encounters Date Type Department Care Team Description 02/28/2025 10:45 AM EST Office Visit [facility] MEDICINE [address] [place] [phone] Maranda Lezama MD Great toe pain, right (Primary Dx); Severe episode of recurrent major depressive disorder, without psychotic features (CMS/HCC) ([facility]); Dietary counseling; Exercise counseling; Class 3 severe obesity due to excess calories with serious comorbidity and body mass index (BMI) of 40.0 to 44.9 in adult ([facility]); Generalized anxiety disorder; Heartburn; Irregular periods/menstrual cycles; Iron deficiency anemia, unspecified iron deficiency anemia type 02/28/2025 Travel 02/25/2025 Telephone [facility] MEDICINE [address] [place] [address] Maranda Lezama MD Chart Prep 02/22/2025 Travel 02/21/2025 Telephone [facility] MEDICINE [address] [place] [address] Maranda Lezama MD Nurse Triage 02/21/2025 Telephone [facility] MEDICINE [address] [place] [address] Maranda Lezama MD Medication Question 12/16/2024 Refill [facility] [address] [place] [phone] Maranda Lezama MD Vitamin D deficiency 12/02/2024 10:45 AM EDT Office Visit [facility] OPTOMETRY [address] [place] [address] Nara Esparza, OD Presbyopia (Primary Dx) from Last 3 Months Immunizations Immunization Administration Dates Next Due Influenza injectable quadriv alent IIV4 with preservative 02/23/2019 Influenza injectable quadrivalent preservative f ree 01/15/2017,01/28/2014 Kenzie SARS-CoV-2 Vaccination 07/29/2020 Pneumococcal Polysaccharide PPSV23 01/28/2014 Family History Medical History Relation Name Comments Bipolar disorder Mother Depression Mother Diabetes Mother Hypertension Mother Relation Name Status Comments Mother Social History Tobacco Use Types Packs/Day Years Used Date Smoking Tobacco: Never Passive Smoke Exposure: Never Smokeless Tobacco: Never Tobacco Cessation:Counseling Given: Not Answered Alcohol Use Standard Drinks/Week Comments Not Currently 0 (1 standard drink = 0.6 oz pur e alcohol) Depression Answer Date Recorded Patient Health Questionnaire-9 Score 16 02/28/2025 Patient Health Questionnaire-9 Score 16 02/28/2025 Last PHQ-9: Questionnaire Data Not on file 1 04/30/2024 Housing Stability Answer Date Recorded What is your housing situation today? I have ruby cunha 02/28/[address] you [...] not to disclose 2021 10:35 AM EDT Last Filed Vital Signs Vital Sign Reading [...] Mass Index 44.92 02/28/2025 10:47 AM EST Plan of Treatment Upcoming Encounters Date Type Department Care Team (Late st Contact Info) Description 04/08/2025 9:30 AM EST Telemedicine [facility] MEDICINE [address] [place] [address] Maranda Lezama MD [address] [place] [address] Health Maintenance Due Date Last Done Comments HIV Screening 1980 Family Planning (PISQ) 09/16/1995 HPV Vaccines (1 - 3-dose series) 09/16/1995 Hepatitis C Screening 1998 DTaP/Tdap/Td Vaccines (1 - Tdap) 09/16/1999 Hepatitis B Vaccines (1 of 3 - 19+ 3-dose series) 09/16/1999 COVID-19 Vaccine (2 - 2024-2 6 season) 2024 07/29/2020 Influenza Vaccine (#1) 2024 9, 01/15/2017, 01/28/2014 Depression Monitoring 08/28/2025 02/28/2025 , 02/28/2025 Mammogram 11/19/2025 11/19/2024, 10/03/2023 Disability Screening 02/22/2026 02/22/2025 Alcohol/Substance Use Screening 02/28/2026 02/28/2025 SDOH Screening 02/28/2026 02/28/2025 Tobacco Screening 02/28/2026 02/28/2025 Lipid Panel 12/21/2027 12/20/2022 Cervical Cancer Screening 09/28/2028 HPV/Cotest 09/28/2028 09/29/2023, 04/08/2019 Pap Smear 09/28/2028 09/29/2023 Zoster Vaccines (1 of 2) 2030 RSV Patients and Patients Aged 60 years or older (1 - 1-dose 75+ series) 09/16/2055 Pneumococcal Vaccine: Pediatrics (0 to 5 Years) and At-Risk Patients (6 to 49) Years Aged Out 01/28/2014 No longer eligible b ased on patient's age to complete this topic HIB Vaccines Aged Out No longer eligi ble based on patient's age to complete this topic Hepatitis A Vaccines Aged Out No long er eligible based on patient's age to complete this topic IPV Vaccines Aged Out No longer eligi ble based on patient's age to complete this topic Meningococcal B Vaccine Aged Out No l onger eligible based on patient's age to complete this topic Meningococcal Vaccine Aged Out No rachel rickie eligible based on patient's age to complete this topic RSV under 20 months Aged Out No longe r eligible based on patient's age to complete this topic Rotavirus Vaccines Aged Out No longer eligible based on patient's age to complete this topic Procedures Procedure Name Priority Date/Time Associated Diagnosis Comments CBC WITH AUTO DIFFERENTIAL Routine 03/04/2025 10:26 AM EST Iron deficiency anemia, unspecified iron deficiency anemia type HEMOGLOBIN A1C Routine 03/04/2025 10:26 AM EST Severe episode of recurrent major depressive disorder, without psychotic features (CMS/HCC) (HCC) BI MAMMOGRAM SCREENING TOMOSYNTHESIS BILATERAL Routine 11/19/2024 9:00 AM EDT HPV MRNA E6/E7 REFLEX TO HPV 16, 18/45 Routine 09/29/2023 9:38 AM EDT PAP SMEAR Routine 09/29/2023 12:00 AM EDT Cervical cancer screening LIPID PANEL, STANDARD Routine 12/20/2022 10:14 AM EDT Depression, unspecified depression type from Last 3 Months or Most Recently Relevant to Health Maintenance Results * (ABNORMAL) CBC auto differential (03/04/2025 10:26 AM EST) White Blood Count 6.7 4.8 - 10.8 X10*3/uL [facility] Red Blood Count 4.42 4.20 - 5.50 X10*6/uL [facility] Hemoglobin 11.0(L) 12.0 - 16.0 g/dl [facility] Hematocrit 35.6(L) 37.0 - 47.0 % [facility] Mean Corpuscular Volume 80.5 80.0 - 98.0 fL [facility] Mean Corpuscular Hemoglobin 24.9(L) 27.0 - 33.0 pg [facility] Mean Corpuscular HGB Conc 30.9(L) 31.0 - 35.0 g/dl [facility] Red Cell Distribution Width 14.4 11.0 - 16.0 % [facility] Platelet Count 307 160 - 400 X10*3/uL [facility] Mean Platelet Volume 11.0 9.4 - 12.3 fL [facility] Neutrophils Percent Auto 64.1 45 - 73 % [facility] Imm Gran Pct Auto 0.1 0.0 - 0.4 % [facility] Lymphocytes Percent Auto 25.9 20 - 40 % [facility] Monocytes Percent Auto 8.1 2 - 11 % [facility] Eosinophils Percent Auto 1.5 0 - 4 % [facility] Basophils Percent Auto 0.3 0 - 2 % [facility] NRBC Pct Auto 0.0 0.0 - 0.2 /100WBC [facility] Neutrophils Absolute Auto 4.3 2.0 - 8.3 x10*3/uL [facility] Imm Gran Abs Auto 0.01 0.00 - 0.03 X10*3/uL [facility] Lymphocytes Absolute Auto 1.7 1.2 - 4.9 X10*3/uL [facility] Monocytes Absolute Auto 0.5 0.1 - 1.2 X10*3/uL [facility] Eosinophils Absolute Auto 0.1 0.0 - 0.4 X10*3/uL [facility] Basophils Absolute Auto 0.0 0.0 - 0.2 X10*3/uL [facility] NRBC Abs Auto 0.000 0.0 - 0.012 X10*3/uL [facility] Blood Venous blood specimen / Unknown 03/04/2025 10:26 AM EST 03/04/2025 11:17 AM EST us Maranda Jiang MD LAB BLOOD ORDERABLES Final Result [facility] [address] [place] [phone] * Hemoglobin A1c (03/04/2025 10:26 AM EST) Hemoglobin A1c 5.8 <6.0 % [facility] Comment:Hemoglobin A1C Refer ence Range Adults: 4.8 - 6.0 % Non diabetic: < 6.0 % Goal: < 7.0 %Additional Action Suggested: > 8.0 %Note: Hemoglobin A1c results are invalid for patients with abnormal amounts of HbF. Blood transfusions may impact the HbA1c concentration in the patient sample. Estimated Average Glucose 120 mg/dL [facility] Comment:eAG = Estimated ave rage glucose which is %A1C expressed asaverage glucose, using the formula of the [employer]5U-[employer]juypknLhut[employer] Glucose study (ADAG), Diabetes Care, Vol.31,#8,Nov. 2007 Blood Venous blood specimen / Unknown 03/04/2025 10:26 AM EST 03/04/2025 11:17 AM EST us Maranda Jiang MD LAB BLOOD ORDERABLES Final Result [facility] [address] [place] [phone] * BI Mammogram Screening Tomosynthesis Bilateral (11/19/2024 9:00 AM EDT) Anatomical Region Laterality Modality Breast Bilateral Mammography 11/19/2024 9:00 AM EDT Narrative 11/29/2024 1:31 PM EDT [address] [place] [address] Mammography Report Signed Patient: Edith Mccarty MR#: [id number] : 1980 Acct:[id number] Age/Sex: 44 / F ADM Date: 11/19/24 Loc: [facility] Attending Dr: Cecil Sears CNM Ordering Physician: Maranda Lezama MD Results: 1Negative Date of Service: 11/19/24 Follow Up: 1 Year From Orig inal Mammogram Procedure(s): MM tomosynthesis screening BI Accession Number(s): [id number] cc: Maranda Lezama MD EXAMINATION: MM SCREENING DIGITAL BREAST TOMOSYNTHESIS, BILATERAL CLINICAL INFORMATION: Screening. Asymptomatic. COMPARISON: Mammography: Comparison is made with available priors TECHNIQUE: Digital breast mammography with tomosynthesis is performed in both the craniocaudal and mediolateral oblique views along with computer-aided detection (CAD). FINDINGS: There are scattered areas of fibroglandular density (ACR BI-RADS breast composition Category b). There are no significant masses, abnormal calcifications, or other abnormalities. MM/MM tomosynthesis screening BI IMPRESSION: No mammographic evidence of malignancy. ASSESSMENT: BI-RADS BI-RADS 1 - Negative RECOMMENDATION: Routine annual mammography screening. 1 year F/U This examination should not preclude the clinical evaluation of a suspicious palpable abnormality. This patient's information was entered into a reminder system with a target due date for their next mammogram. Electronically signed by: Deja Martinez DO 11/29/2024 01:29 PM EDT RP Dictated By: Deja Martinez DO Signed By: <Electronically signed by Deja Martinez DO in OV> 11/29/24 1329 DD/ 0900 TD/TT: 11/19/24 0921 Plaster Machine Tender: Procedure Note Donotuseinterpreter, Image - 11/29/2024 [place] [facility] [address] [place] [address] Mammography Report Signed Patient: Edith Mccarty DMR#: [id number] : 1980Acct:[id number] Age/Sex: 44 / FADM Date: 11/19/24 Loc: MAMMO Attending Dr: Cecil Sears Christophe Ordering Physician: Maranda Lezama MDResults: 1Negative Date of Service: 11/19/24Follow Up: 1 Year From Orig inal Mammogram Procedure(s): MM tomosynthesis screening BI Accession Number(s): [id number] cc: Maranda Lezama MD EXAMINATION: MM SCREENING DIGITAL BREAST TOMOSYNTHESIS, BILATERAL CLINICAL INFORMATION: Screening. Asymptomatic. COMPARISON: Mammography: Comparison is made with available priors TECHNIQUE: Digital breast mammography with tomosynthesis is performed in both the craniocaudal and mediolateral oblique views along with computer-aided detection (CAD). FINDINGS: There are scattered areas of fibroglandular density (ACR BI-RADS breast composition Category b). There are no significant masses, abnormal calcifications, or other abnormalities. MM/MM tomosynthesis screening BI IMPRESSION: No mammographic evidence of malignancy. ASSESSMENT: BI-RADS BI-RADS 1 - Negative RECOMMENDATION: Routine annual mammography screening. 1 year F/U This examination should not preclude the clinical evaluation of a suspicious palpable abnormality. This patient's information was entered into a reminder system with a target due date for their next mammogram. Electronically signed by: Deja Martinez DO 11/29/2024 01:29 PM EDT RP Dictated By: Deja Martinez DO Signed By: <Electronically signed by Deja Martinez DO in OV> 11/29/24 1329 DD/ 0900 TD/TT: 11/19/24 0921 Plaster Machine Tender: Maranda Jiang MD IMG BI PROCEDURES Fin al Result * HPV mRNA E6/E7 w/Reflex to HPV Genotypes 16, 18/45 (09/29/2023 9:38 AM EDT) HPV nRNA E6/E7 Not Detected Not Detected [facility] Comment:Methodology: Transcr iption-Mediated AmplificationThis assay detects E6/E7 viral messenger RNA (mRNA) from 14high-risk HPV types (16,18,31,33,35,39,45,51,52,56,58,59,66,68).Cervical sources are required for HPV testing.If a vaginal source from a patient who has had atotal hysterectomy with removal of cervix wassubmitted, please contact the testing laboratoryfor alternative testing options.For additional information, please refer [email or web address].[employer]/faq/HCL402n0(This link if provided for information/educational purposes only.)THIS TEST WAS PERFORMED AT:[facility] [place] [id number] FORDE MD HPV mRNA E6/E7 TNP [facility] HPV 16 RNA TNP [facility] HPV 18/45 RNA TNP [facility] 09/29/2023 9:38 AM EDT 10/08/2023 11:12 AM EDT us Cecil DICKENS LAB CYTOLOGY ORDERABLES F inal Result [facility] [address] [place] [phone] * Pap Smear (09/29/2023 12:00 AM EDT) Swab Cervix uteri structure / Unknown 09/29/2023 09/30/2023 9:10 AM EDT Narrative [facility] - 10/13/2023 5:16 PM EDT ----- ------- Name: Edith Mccarty Age/Sex: 43/F : 1980 Unit#: [id number] Attend Dr: CECIL SEARS CNM Re09/29/23 Status: DEP REF Location: HO.HHCLNP Disch: ----- ------- SPEC : [id number] RECD: 09/30/23 STATUS: FAISAL HOLGUIN NUM: [id number] STACIE: 09/29/23-[address]: CECIL SEARS CNM ENTERED: 09/30/23 SP TYPE: Pap Smr OTHR : ORDERED: Pap Smear Interpretation Satisfactory for evaluation. No endocervical cells seen. Negative for intraepithelial lesion or malignancy. HPV mRNA E6/E7: NOT DETECTED This assay detects E6/E7 viral messenger RNA (mRNA) from 14 high-risk HPV types (16, 18, 31, 33, 35, 39, 45, 51, 52, 56, 58, 59, 66, 68) HPV testing performed by [employer], [place], [place]. See reference laboratory portion of the EMR for entire report. Clinical Information LMP: 09/06/2023 Previous PAP test: 2019, WNL Material Received ThinPrep-Cervical ----- ------- Signed (signature on file) Kenisha Schaffer Berta 10/13/23 1716 ----- ------- END OF REPORT us Cecil Sears CNM LAB CYTOLOGY ORDERABLES F inal Result [facility] [address] [place] [phone] * (ABNORMAL) Lipid Panel, Standard (12/20/2022 10:14 AM EDT) Triglycerides 107 <150 mg/dL [facility] Comment:Desirable Triglyceri de: less than 150 mg/dLBorderline High Triglyceride 150-199 mg/dLHigh Triglyceride: 200-499 mg/dLVery High Triglyceride: greater than or equal to 5OO mg/dL Cholesterol 208(H) <200 mg/dL [facility] Comment:Desirable Cholestero l: less than 200 mg/dLBorderline High Cholesterol: 200-239 mg/dLHigh Cholesterol: greater than 239 mg/dL LDL Cholesterol Calculated 142(H) <100 mg/dL [facility] Comment:Desirable LDL: less than 100 mg/dLNear Optimal/Above Optimal LDL: 110- 129 mg/dLBorderline High LDL: 130-159 mg/dLHigh LDL: 160-189 mg/dLVery High LDL: greater than or equal to 190 mg/dL HDL Cholesterol 45 >40 mg/dL [facility] Comment:Desirable HDL: great er than 40 mg/dL Note: This HDL assay may give artificially low results in patients with liver disease. Blood Venous blood specimen / Unknown 12/20/2022 10:14 AM EDT 12/20/2022 11:21 AM EDT Maranda Jiang MD LAB BLOOD ORDERABLES Final Result [facility] [address] [place] [phone] from Last 3 Months or Most Recently Relevant to Health Maintenance Insurance [facility] C3 Care Teams Process Steward Relationship Specialty Start Date End Date aMranda Lezama MD [address] [place] [phone] PCP - General Family Medicine 11/30/18
[2025-03-04 12:19] LABS: HIV Num 1 0.06 S/CO (0.00-0.99); ~HepC Num1 0.13 S/CO (0.00-0.79); ~Hepatitis C Antibody Nonreactive (Nonreactive)
[2025-03-04 12:20] LABS: Alanine Aminotransferase 25 U/L (0-31); Albumin Level 4.2 g/dL (3.5-5.0); Alkaline Phosphatase 59 U/L (39-117); Anion Gap 8 (12-20); Aspartate Amino Transferase 24 U/L (5-31); Blood Urea Nitrogen 10 mg/dL (9-16); Calcium 8.7 mg/dL (8.4-10.2); Carbon Dioxide 25 mmol/L (22-29); Chloride 110 mmol/L (96-108); Cholesterol 201 mg/dL (<200); Estimated Glomerular Filt Rate > 60; Ferritin 8 ng/mL (10-250); HDL Cholesterol 43 mg/dL (>40); Iron 37 mcg/dL (30-160); Percent Iron Saturation 11 % (15-50); Potassium 4.2 mmol/L (3.3-5.1); Sodium 139 mmol/L (135-145); Total Iron Binding Capacity 339 mcg/dL (228-428); Total Protein 7.1 g/dL (6.5-8.0); Triglycerides 98 mg/dL (<150); Unsaturated Iron Binding 302 ug/dL
[2025-03-04 12:41] LABS: Folate 9.3 ng/mL (> or = 4.0); Vitamin B12 597 pg/mL (200-900)
== END 2025-03-04 10:22 | disposition home or self-care (01) ==
LOC: HO.HHCL 10:21
PROVIDERS: PCP Internal Medicine; Visit Provider Internal Medicine
DX: Z11.4 Encounter for screening for human immunodeficiency virus [HIV] (principal); Z11.59 Encounter for screening for other viral diseases; D50.9 Iron deficiency anemia, unspecified; F33.2 Major depressive disorder, recurrent severe without psychotic features
CPT/HCPCS: 36415; 80053; 80061; 82306; 82607; 82728; 82746; 83036; 83540; 84443; 85025; 86803; 87389

== ENCOUNTER 2025-03-18 10:20 | Outpatient (REF) | payer MEDICAID, SELFPAY ==
--- NOTE | ~2025-03-18 | XR_ITS ---
EXAMINATION: XR WRIST, LEFT CLINICAL INFORMATION: pain COMPARISON: None available. TECHNIQUE: Four views of the left wrist. FINDINGS: No visible acute fracture, dislocation or suspicious bony lesion. Alignment is anatomic with normal joint spaces. No erosions or abnormal soft tissue calcifications. XR/XR wrist LT min 3V IMPRESSION: No acute osseous findings Electronically signed by: Xavier Jones MD 03/18/2025 10:40 AM CHANCE
== END 2025-03-18 10:21 | disposition home or self-care (01) ==
LOC: HO.HHCX 10:20
PROVIDERS: PCP Internal Medicine; Visit Provider Internal Medicine
DX: M25.532 Pain in left wrist (principal)
CPT/HCPCS: 73110

== ENCOUNTER → 2025-03-18 10:28 | Outpatient (BNV) | payer MEDICAID, SELFPAY | PROVIDERS: PCP Internal Medicine; Visit Provider Radiology Diagnostic Ultrasound | DX: M25.532 Pain in left wrist (principal) | CPT/HCPCS: 73110 ==